=== PATIENT | male | born 1935 | race Caucasian/White ===

== ENCOUNTER → 2020-01-04 08:50 | Outpatient (CLI) | payer MEDICARE, OTHER, SELFPAY ==
[2020-01-04 10:29] LABS: Add Manual Diff / Slide Review NO; Basophils Absolute Auto 100 /uL (0-100); Basophils Percent Auto 0.8 % (0-2); Eosinophils Absolute Auto 200 /uL (0-450); Eosinophils Percent Auto 2.8 % (2-4); Hemoglobin 15.3 g/dL (13.5-17.5); Lymphocytes Absolute Auto 1500 /uL (1100-4500); Lymphocytes Percent Auto 22.4 % (25-40); Mean Corpuscular HGB Conc 32.6 % (30-36); Mean Corpuscular Hemoglobin 29.7 PG (26-34); Mean Corpuscular Volume 91.2 fL (80-100); Monocytes Absolute Auto 700 /uL (0-900); Monocytes Percent Auto 10.8 % (3-14); Neutrophils Absolute Auto 4300 /uL (1500-7000); Neutrophils Percent Auto 63.2 % (50-75); Platelet Count 120 X10^3/uL (150-400); Red Blood Cell Count 5.15 X10^6/uL (4.5-5.9); Red Cell Distribution Width 13.8 % (11.6-14.8); White Blood Cell Count 6.7 X10^3/uL (4.5-11.0)
[2020-01-04 10:38] LABS: Hemoglobin A1C% w Est Avg Glu 5.8 % (4.0-6.0)
[2020-01-04 10:48] LABS: Alanine Aminotransferase 20 IU/L (<50); Albumin 4.1 g/dL (3.5-5.0); Albumin Globulin Ratio 1.3 (1.0-2.8); Alkaline Phosphatase 93 U/L (38-126); Aspartate Aminotransferase 31 IU/L (17-59); BUN Creatinine Ratio 20.3 (6-22); Bilirubin Total 0.8 mg/dL (0.2-1.3); Blood Urea Nitrogen 15 mg/dL (9-20); Calcium 9.3 mg/dL (8.4-10.2); Carbon Dioxide 30 mmol/L (22-32); Chloride 105 mmol/L (98-107); Cholesterol 165 mg/dL (140-199); Estimated Glomerular Filt Rate > 60.0 mL/min (>60); Globulin 3.2 g/dL (1.7-4.1); Glucose 97 mg/dL (80-110); HDL Cholesterol 38 mg/dL (40-60); HEMOLYSIS < 15 (0-50); LDL Cholesterol Calculated 112 mg/dL (<100); Potassium 4.6 mmol/L (3.4-5.1); Sodium 139 mmol/L (137-145); Total Protein 7.3 g/dL (6.3-8.2); Triglycerides 76 mg/dL (35-150); Uric Acid 4.9 mg/dL (3.5-8.5)
[2020-01-04 11:46] LABS: TSH w/ Reflex to FT4 4.36 uIU/mL (0.47-4.68)
== END ==
PROVIDERS: PCP Internal Medicine; Referring Provider Internal Medicine; Visit Provider Internal Medicine
DX: E78.5 Hyperlipidemia, unspecified (principal); I10 Essential (primary) hypertension; M1A.9XX0 Chronic gout, unspecified, without tophus (tophi); G47.33 Obstructive sleep apnea (adult) (pediatric); F32.9 Major depressive disorder, single episode, unspecified; R73.09 Other abnormal glucose
CPT/HCPCS: 36415; 80053; 80061; 83036; 84443; 84550; 85025

== ENCOUNTER → 2020-01-10 15:04 | Outpatient (ROUT) | payer MEDICARE, OTHER, SELFPAY | PROVIDERS: PCP Internal Medicine; Visit Provider Internal Medicine | DX: R30.0 Dysuria (principal) | CPT/HCPCS: 87086 ==

== ENCOUNTER → 2020-02-07 10:03 | Outpatient (CLI) | payer MEDICARE, OTHER, SELFPAY ==
[2020-02-07 11:12] LABS: Alanine Aminotransferase 23 IU/L (<50); Albumin 4.1 g/dL (3.5-5.0); Albumin Globulin Ratio 1.3 (1.0-2.8); Alkaline Phosphatase 95 U/L (38-126); Aspartate Aminotransferase 42 IU/L (17-59); BUN Creatinine Ratio 28.8 (6-22); Bilirubin Total 0.9 mg/dL (0.2-1.3); Blood Urea Nitrogen 23 mg/dL (9-20); Calcium 9.3 mg/dL (8.4-10.2); Carbon Dioxide 28 mmol/L (22-32); Chloride 104 mmol/L (98-107); Cholesterol 135 mg/dL (140-199); Estimated Glomerular Filt Rate > 60.0 mL/min (>60); Globulin 3.1 g/dL (1.7-4.1); Glucose 117 mg/dL (80-110); HDL Cholesterol 35 mg/dL (40-60); HEMOLYSIS 23 (0-50); LDL Cholesterol Calculated 66 mg/dL (<100); Sodium 138 mmol/L (137-145); Total Protein 7.2 g/dL (6.3-8.2); Triglycerides 170 mg/dL (35-150); Uric Acid 4.3 mg/dL (3.5-8.5)
== END ==
PROVIDERS: PCP Internal Medicine; Referring Provider Internal Medicine; Visit Provider Internal Medicine
DX: I25.10 Atherosclerotic heart disease of native coronary artery without angina pectoris (principal); M1A.9XX0 Chronic gout, unspecified, without tophus (tophi)
CPT/HCPCS: 36415; 80053; 80061; 84550

== ENCOUNTER 2020-07-04 17:01 | Emergency (ER) | payer MEDICARE, OTHER, SELFPAY ==
[2020-07-04] VITALS (39 sets, daily range): BP systolic 84–107; BP diastolic 50–61; PULSE 37–74; RESP 14–27; TEMP 37; O2SAT 92–98; BMI 28.7
--- NOTE | 2020-07-04 17:17 | DI.RAD.S_ITS ---
PROCEDURE: XR CHEST 1V INDICATIONS: Bradycardia TECHNIQUE: One view of the chest was acquired. COMPARISON: [facility], CHEST 1 VIEW, 04/27/2013, 12:54. [facility], CHEST 1 VIEW, 09/07/2013, 23:06. FINDINGS: Surgical changes and devices: None. Defibrillator pads are seen. Lungs and pleura: Lungs are clear. No pleural effusions or pneumothorax. Mediastinum: Tortuous Bones and chest wall: No suspicious bony lesions. Age-appropriate bony degenerative changes are seen. Overlying soft tissues appear unremarkable. IMPRESSION: Portable chest, without an acute abnormality identified. Dictated by: Lester Noble M.D. on 07/04/2020 at 16:44 Approved by: Lester Noble M.D. on 07/04/2020 at 16:45
--- NOTE | 2020-07-04 17:22 | ED_ITS ---
HPI - General Adult General Chief complaint: Dizziness Stated complaint: short of breath, dizziness Time Seen by Provider: 07/04/20 17:16 Source: patient Mode of arrival: Ambulatory Limitations: no limitations History of Present Illness HPI narrative: Patient is an 85-year-old male who has a history of hypertension and gout and depression who is here for evaluation of several days of shortness of breath and dizziness and generalized fatigue. He denies any chest pain. He states he has been taking his medications as directed. He has not fallen. No new exposures. No new medicines. He has never had anything like this in the past. Related Data Home Medications Medication Instructions Recorded Confirmed POTASSIUM CHLORIDE (KLOR-CON M10) 10 meq PO BID #0 05/07/11 08/30/18 [OTC STOOL SOFTENER] 1 tab PRN #0 05/07/11 08/30/18 hydrochlorothiazide 25 mg PO QDAY #0 05/07/11 08/30/18 simvastatin 80 mg PO HS #0 05/07/11 08/30/18 allopurinol 300 mg tablet 300 mg PO DAILY 08/30/18 08/30/18 aspirin 81 mg tablet,delayed 81 mg PO DAILY 08/30/18 08/30/18 release diltiazem HCl 120 mg 120 mg PO DAILY 08/30/18 08/30/18 capsule,extended release 24 hr sertraline 50 mg tablet 50 mg PO DAILY 08/30/18 08/30/18 Allergies Allergy/AdvReac Type Severity Reaction Status Date / Time No Known Drug Allergies Allergy Verified 07/04/20 17:28 Review of Systems Constitutional Constitutional: Reports fatigue, Denies fever(s), Denies headache(s), Reports lethargy and Reports weakness Eyes Eyes: Denies change in vision ENT Ears, Nose, Mouth, and Throat: Denies vertigo, Denies dizziness, Denies headache(s), Denies disequilibrium and Denies sore throat Cardiovascular Cardiovascular: Denies chest pain, Reports lightheadedness and Reports dyspnea on exertion Respiratory Respiratory: Denies cough and Reports dyspnea on exertion Gastrointestinal Gastrointestinal: Denies abdominal pain, Denies nausea and Denies vomiting Genitourinary Genitourinary: Denies dysuria Genitourinary: Denies dysuria Musculoskeletal Musculoskeletal: Denies arthralgias and Denies myalgias Integumentary/Breasts Skin/Breast: Denies rash Neurologic Neurologic: Denies behavioral changes, Denies confusion, Denies vertigo, Denies dizziness, Denies headache(s), Denies disequilibrium and Reports weakness Psychiatric Psychiatric: Denies behavioral changes and Denies confusion Endocrine Endocrine: Reports fatigue Hematologic/Lymphatic On Anticoagulants: No Allergic/Immunologic Allergic/Immunologic: Denies urticaria Patient History Medical History Depression Gout Head contusion Hypertension Social History Smoking Status: Never smoker Smoking Status: Never smoker Exam Initial Vital Signs Initial Vital Signs: Vital Signs Temperature 98.6 F 07/04/20 17:01 Pulse Rate 44 L 07/04/20 17:01 Respiratory Rate 16 07/04/20 17:01 Blood Pressure 103/56 L 07/04/20 17:01 Pulse Oximetry 95 07/04/20 17:01 Const General: cooperative, comfortable and well developed Limitations: mental status not altered HENMT Head: normal to inspection and normocephalic Eyes General: appearance normal, both eyes and all related structures Chest Chest: No tenderness Resp Effort & Inspection: normal respiratory effort Auscultation: clear to auscultation bilaterally Cardio Rate: bradycardic Rhythm: regular rhythm Pulses: radial pulses present GI Inspection: non-distended Palpation: soft, No firm and No tender General: bladder normal to palpation Back/Spine/Pelvis Back: No CVA tenderness Skin Lesions: no lesions Rashes: no rashes Neuro General: patient alert, patient awake and patient oriented x3 Cognition: normal cognition Speech: speech normal Motor: muscle tone normal throughout Sensory Exam: no sensory deficits noted Extrem General: normal to inspection, capillary refill normal and No edema Psych Appearance: grossly normal and well kempt Scores GCS Jhon coma scale eye opening: Spontaneous Nunez coma scale verbal response: Orientated Nunez coma scale motor response: Obey commands Nunez coma scale total score: 15 Course Orders Ordered: ED Orders 07/04/20 17:15 Complete Blood Count AUTO DIFF Stat Comprehensive Metabolic Panel Stat Lipase Stat NT-proBNP (BNP-Adult 18+) Stat Partial Thromboplastin Time Stat Prothrombin Time INR Stat Troponin & CK Cardiac Panel Stat 07/04/20 17:17 XR chest 1V Stat 07/04/20 18:31 COVID19 - ADMIT (PATENT SEARCHER swab/PCR) Stat Sodium Chloride (Normal Saline 0.9%) 1,000 mls @ 150 mls/hr IV CONT XAVI Last Infusion: 07/04/20 18:09 Dose: 999 mls/hr Documented by: Admin: 07/04/20 17:48 Dose: 150 mls/hr Documented by: JANNET Discontinued Medications Atropine Sulfate (Atropine 1 Mg/10 Ml Syringe) 0.5 mg IV NOW ONE Stop: 07/04/20 17:34 Last Admin: 07/04/20 17:47 Dose: 0.5 mg Documented by: JANNET Vital Signs Vital signs: Vital Signs - 8 hr 07/04/20 17:01 07/04/20 17:09 07/04/20 17:30 Temperature 98.6 F Pulse Rate 44 L 42 L 42 L Respiratory Rate 16 20 19 Blood Pressure 103/56 L 103/56 L Pulse Oximetry 95 96 95 07/04/20 17:42 07/04/20 17:45 07/04/20 18:00 Temperature Pulse Rate 48 L 48 L 44 L Respiratory Rate 15 14 16 Blood Pressure 99/57 L 100/55 L 87/52 L Pulse Oximetry 93 94 95 07/04/20 18:03 07/04/20 18:15 07/04/20 18:21 Temperature Pulse Rate 44 L 46 L 47 L Respiratory Rate 15 14 18 Blood Pressure 92/53 L 96/58 L 93/50 L Pulse Oximetry 96 96 98 07/04/20 18:25 07/04/20 18:30 07/04/20 18:35 Temperature Pulse Rate 45 L 40 L 40 L Respiratory Rate 14 17 17 Blood Pressure 98/55 L 103/55 L 103/52 L Pulse Oximetry 95 94 94 07/04/20 18:40 07/04/20 18:45 07/04/20 18:50 Temperature Pulse Rate 39 L 41 L 39 L Respiratory Rate 17 17 17 Blood Pressure 103/52 L 92/51 L 91/50 L Pulse Oximetry 95 94 92 Medical Decision Making Lab Data Lab results reviewed: Yes I reviewed the patient's lab results. Result diagrams: 07/04/20 17:15 07/04/20 17:15 Labs: Lab Results 07/04/20 07/04/20 07/04/20 Range/Units 17:15 17:15 17:15 WBC 9.1 (4.5-11.0) X10^3/uL RBC 5.09 (4.5-5.9) X10^6/uL Hgb 15.4 (13.5-17.5) g/dL Hct 46.1 (41-53) % MCV 90.5 (80-100) fL MCH 30.3 (26-34) PG MCHC 33.4 (30-36) % RDW 13.6 (11.6-14.8) % Plt Count 149 L (150-400) X10^3/uL Neut % (Auto) 63.8 (50-75) % Lymph % (Auto) 26.3 (25-40) % Power % (Auto) 7.4 (3-14) % Eos % (Auto) 1.4 L (2-4) % Baso % (Auto) 1.1 (0-2) % Neut # (Auto) 5800 (4703-6751) /uL Lymph # (Auto) 2400 (5688-4423) /uL Power # (Auto) 700 (0-900) /uL Eos # (Auto) 100 (0-450) /uL Baso # (Auto) 100 (0-100) /uL PT 12.8 H (10.1-12.7) SECONDS INR 1.1 (0.9-1.3) APTT 33 (26.4-36.2) SECONDS Sodium 140 (137-145) mmol/L Potassium 4.4 (3.4-5.1) mmol/L Chloride 104 (98-107) mmol/L Carbon Dioxide 25 (22-32) mmol/L BUN 21 H (9-20) mg/dL Creatinine 1.06 (0.66-1.25) mg/dL Estimated GFR > 60.0 (>60) mL/min BUN/Creatinine Ratio 19.8 (6-22) Glucose 142 H (80-110) mg/dL Calcium 9.4 (8.4-10.2) mg/dL Total Bilirubin 0.7 (0.2-1.3) mg/dL AST 35 (17-59) IU/L ALT 22 (<50) IU/L Alkaline Phosphatase 100 (38-126) U/L Total Creatine Kinase 62 (55-170) U/L CK-MB (CK-2) TNP CK-MB (CK-2) Rel Index TNP Troponin I < 0.012 (0.01-0.034) ng/mL NT-Pro-B Natriuret Pep 471 H (<450) pg/mL Total Protein 7.0 (6.3-8.2) g/dL Albumin 4.0 (3.5-5.0) g/dL Globulin 3.0 (1.7-4.1) g/dL Albumin/Globulin Ratio 1.3 (1.0-2.8) Lipase 126 (23-300) U/L SARS-CoV-2 (PCR) (Negative) 07/04/20 Range/Units 18:31 WBC (4.5-11.0) X10^3/uL RBC (4.5-5.9) X10^6/uL Hgb (13.5-17.5) g/dL Hct (41-53) % MCV (80-100) fL MCH (26-34) PG MCHC (30-36) % RDW (11.6-14.8) % Plt Count (150-400) X10^3/uL Neut % (Auto) (50-75) % Lymph % (Auto) (25-40) % Power % (Auto) (3-14) % Eos % (Auto) (2-4) % Baso % (Auto) (0-2) % Neut # (Auto) (8116-4413) /uL Lymph # (Auto) (1355-3649) /uL Power # (Auto) (0-900) /uL Eos # (Auto) (0-450) /uL Baso # (Auto) (0-100) /uL PT (10.1-12.7) SECONDS INR (0.9-1.3) APTT (26.4-36.2) SECONDS Sodium (137-145) mmol/L Potassium (3.4-5.1) mmol/L Chloride (98-107) mmol/L Carbon Dioxide (22-32) mmol/L BUN (9-20) mg/dL Creatinine (0.66-1.25) mg/dL Estimated GFR (>60) mL/min BUN/Creatinine Ratio (6-22) Glucose (80-110) mg/dL Calcium (8.4-10.2) mg/dL Total Bilirubin (0.2-1.3) mg/dL AST (17-59) IU/L ALT (<50) IU/L Alkaline Phosphatase (38-126) U/L Total Creatine Kinase (55-170) U/L CK-MB (CK-2) CK-MB (CK-2) Rel Index Troponin I (0.01-0.034) ng/mL NT-Pro-B Natriuret Pep (<450) pg/mL Total Protein (6.3-8.2) g/dL Albumin (3.5-5.0) g/dL Globulin (1.7-4.1) g/dL Albumin/Globulin Ratio (1.0-2.8) Lipase (23-300) U/L SARS-CoV-2 (PCR) Negative (Negative) Imaging Data Chest x-ray: Radiologist's Impression: [address] [id number] ReportSigned Patient: Teddy Don [facility]#: [id number]: 5Acct:[id number]/Sex: 85 / MDate of Service: 07/04/20Loc: EDAccession Number: [id number] Procedure: XR chest 1V Ordering Provider: Darnell Jones D.O. PROCEDURE: XR CHEST 1V INDICATIONS: Bradycardia TECHNIQUE: One view of the chest was acquired. COMPARISON: [facility], CHEST 1 VIEW, 04/27/2013, 12:54. [facility], CHEST 1 VIEW, 09/07/2013, 23:06. FINDINGS: Surgical changes and devices: None. Defibrillator pads are seen. Lungs and pleura: Lungs are clear. No pleural effusions or pneumothorax. Mediastinum: Tortuous Bones and chest wall: No suspicious bony lesions. Age-appropriate bony degenerative changes are seen. Overlying soft tissues appear unremarkable. IMPRESSION: Portable chest, without an acute abnormality identified. Dictated by: Lester Noble M.D. on 07/04/2020 at 16:44 Approved by: Lester Noble M.D. on 07/04/2020 at 16:45 ECG Data Attestation: I personally reviewed and interpreted this ECG as follows: Prior ECG tracings: not available for review Interpretation: Sinus bradycardia Ventricular rate of 43 Right bundle branch block Left anterior fascicular block LVH PA interval 184 milliseconds QRS 1-6 milliseconds QTC 408 milliseconds MDM Narrative Medical decision making narrative: Patient's chest x-ray and labs are unremarkable. He is bradycardic. It is a sinus bradycardia. Blood pressure has been systolic in the 90s to low 100s. Mean arterial pressures have been 55- 65. He is mentating without issue. Has no chest pain. Has no shortness of breath. No abdominal pain. Patient is stable. He is on diltiazem for what he states is high blood pressure. At 1 point his heart rate did drop to the mid 30s. He was given 0.5 mg of atropine and this increased his heart rate to the high 40s. His blood pressure also improved with this. External pacer pads were placed but has not required any pacing. Discussed the case with Dr. Zarco with cardiology who recommended admitting him to the hospital for monitoring and also stopping his diltiazem. I discussed the case with Dr Cruz with medicine at [facility] who accepts the patient in transfer. I did discuss the need for transport with the patient. He is currently stable for transfer. He expressed understanding agreement. Critical Care Time Critical Care Time Critical Care Time: Yes Total Critical Care Time: 35 Attestation: The high probability of a clinically significant, sudden or life threatening deterioration of the cardiovascular system(s) required my full and direct attention, intervention and personal management. The aggregate critical care time was 35 minutes. This time is in addition to time spent performing reported procedures but includes the following: [X] Data Review and interpretation [X] Patient assessment and monitoring of vital signs [X] Documentation [x] Medication orders and management Discharge Plan Departure Patient Disposition: [facility] Clinical Impression: Symptomatic bradycardia Prescriptions: No Action allopurinol 300 mg tablet 300 mg PO DAILY RF: 0 aspirin 81 mg tablet,delayed release (DR/EC) 81 mg PO DAILY RF: 0 diltiazem HCl 120 mg capsule,extended release 24hr 120 mg PO DAILY RF: 0 sertraline 50 mg tablet 50 mg PO DAILY RF: 0 [OTC STOOL SOFTENER] 1 tab PRN Qty: 0 RF: 0 simvastatin 40 MG tablet 80 mg PO HS Qty: 0 RF: 0 POTASSIUM CHLORIDE (KLOR-CON M10) 10 meq PO BID Qty: 0 RF: 0 hydrochlorothiazide 25 MG tablet 25 mg PO QDAY Qty: 0 RF: 0 Referrals: Corinne Garcia MD [Primary Care Provider] -
[2020-07-04 17:34] LABS: Add Manual Diff / Slide Review NO; Basophils Absolute Auto 100 /uL (0-100); Basophils Percent Auto 1.1 % (0-2); Eosinophils Absolute Auto 100 /uL (0-450); Eosinophils Percent Auto 1.4 % (2-4); Hematocrit 46.1 % (41-53); Hemoglobin 15.4 g/dL (13.5-17.5); INR 1.1 (0.9-1.3); Lymphocytes Absolute Auto 2400 /uL (1100-4500); Lymphocytes Percent Auto 26.3 % (25-40); Mean Corpuscular HGB Conc 33.4 % (30-36); Mean Corpuscular Hemoglobin 30.3 PG (26-34); Mean Corpuscular Volume 90.5 fL (80-100); Monocytes Absolute Auto 700 /uL (0-900); Monocytes Percent Auto 7.4 % (3-14); Neutrophils Absolute Auto 5800 /uL (1500-7000); Neutrophils Percent Auto 63.8 % (50-75); Platelet Count 149 X10^3/uL (150-400); Prothrombin Time 12.8 SECONDS (10.1-12.7); Red Blood Cell Count 5.09 X10^6/uL (4.5-5.9); Red Cell Distribution Width 13.6 % (11.6-14.8); White Blood Cell Count 9.1 X10^3/uL (4.5-11.0)
[2020-07-04 17:36] LABS: PTT Partial Thromboplastin Tim 33 SECONDS (26.4-36.2)
[2020-07-04 17:39] LABS: Alanine Aminotransferase 22 IU/L (<50); Albumin Globulin Ratio 1.3 (1.0-2.8); Alkaline Phosphatase 100 U/L (38-126); Aspartate Aminotransferase 35 IU/L (17-59); BUN Creatinine Ratio 19.8 (6-22); Bilirubin Total 0.7 mg/dL (0.2-1.3); Blood Urea Nitrogen 21 mg/dL (9-20); Calcium 9.4 mg/dL (8.4-10.2); Carbon Dioxide 25 mmol/L (22-32); Chloride 104 mmol/L (98-107); Creatine Kinase 62 U/L (55-170); Estimated Glomerular Filt Rate > 60.0 mL/min (>60); Glucose 142 mg/dL (80-110); HEMOLYSIS 19 (0-50); Lipase 126 U/L (23-300); Potassium 4.4 mmol/L (3.4-5.1); Sodium 140 mmol/L (137-145)
[2020-07-04] MEDS: ATROPINE 1 MG/10 ML SYRINGE 0.5 MG IV (17:47)
[2020-07-04] MEDS: SODIUM CHLORIDE 0.9% 1,000 ML 150 ML IV (17:48)
[2020-07-04 17:50] LABS: NT-proBNP (BNP-Adult 18+) 471 pg/mL (<450); Troponin I < 0.012 ng/mL (0.01-0.034)
--- NOTE | 2020-07-04 18:07 | PC.NURSE ---
Pt BP dropping, VORB Dr. Jones 500mL NS bolus started
[2020-07-04 19:15] LABS: COVID19 - ADMIT (NP swab/PCR) Negative (Negative)
== END 2020-07-04 21:04 | disposition short-term general hospital (02) ==
LOC: ED 17:37
PROVIDERS: Emergency Provider Emergency Medicine; PCP Internal Medicine
DX: R00.1 Bradycardia, unspecified (principal); R42 Dizziness and giddiness; R06.02 Shortness of breath
CPT/HCPCS: 36415; 71045; 80053; 82550; 83690; 83880; 84484; 85025; 85610; 85730; 87635; 93005; 96361; 96374; 99284; 99291; C9803; J0461

== ENCOUNTER → 2020-07-24 14:42 | Outpatient (ROUT) | payer MEDICARE, OTHER, SELFPAY ==
[2020-07-24 14:52] LABS: Add Manual Diff / Slide Review NO; Basophils Absolute Auto 100 /uL (0-100); Basophils Percent Auto 1.2 % (0-2); Eosinophils Absolute Auto 100 /uL (0-450); Hematocrit 47.7 % (41-53); Hemoglobin 15.6 g/dL (13.5-17.5); Lymphocytes Absolute Auto 1800 /uL (1100-4500); Mean Corpuscular HGB Conc 32.6 % (30-36); Mean Corpuscular Hemoglobin 29.8 PG (26-34); Mean Corpuscular Volume 91.4 fL (80-100); Monocytes Absolute Auto 700 /uL (0-900); Monocytes Percent Auto 9.9 % (3-14); Neutrophils Absolute Auto 4500 /uL (1500-7000); Neutrophils Percent Auto 61.9 % (50-75); Platelet Count 139 X10^3/uL (150-400); Red Blood Cell Count 5.22 X10^6/uL (4.5-5.9); Red Cell Distribution Width 13.9 % (11.6-14.8); White Blood Cell Count 7.3 X10^3/uL (4.5-11.0)
[2020-07-24 15:38] LABS: Alanine Aminotransferase 24 IU/L (<50); Albumin 4.3 g/dL (3.5-5.0); Albumin Globulin Ratio 1.5 (1.0-2.8); Alkaline Phosphatase 100 U/L (38-126); Aspartate Aminotransferase 34 IU/L (17-59); BUN Creatinine Ratio 17.1 (6-22); Bilirubin Total 0.9 mg/dL (0.2-1.3); Blood Urea Nitrogen 14 mg/dL (9-20); Calcium 9.9 mg/dL (8.4-10.2); Carbon Dioxide 27 mmol/L (22-32); Chloride 105 mmol/L (98-107); Cholesterol 131 mg/dL (140-199); Estimated Glomerular Filt Rate > 60.0 mL/min (>60); Globulin 2.9 g/dL (1.7-4.1); Glucose 89 mg/dL (80-110); HDL Cholesterol 41 mg/dL (40-60); HEMOLYSIS < 15 (0-50); LDL Cholesterol Calculated 75 mg/dL (<100); Potassium 4.5 mmol/L (3.4-5.1); Sodium 138 mmol/L (137-145); Total Protein 7.2 g/dL (6.3-8.2); Triglycerides 74 mg/dL (35-150); Uric Acid 4.3 mg/dL (3.5-8.5)
== END ==
PROVIDERS: PCP Internal Medicine; Visit Provider Physician Assistant
DX: E78.49 Other hyperlipidemia (principal); M1A.9XX0 Chronic gout, unspecified, without tophus (tophi); I10 Essential (primary) hypertension; I25.10 Atherosclerotic heart disease of native coronary artery without angina pectoris
CPT/HCPCS: 80053; 80061; 84550; 85025

== ENCOUNTER 2020-08-29 23:19 | Emergency (ER) | payer MEDICARE, OTHER, SELFPAY ==
[2020-08-29 23:34] VITALS: BP 144/105; PULSE 64; RESP 24; TEMP 37.2; O2SAT 96
--- NOTE | 2020-08-29 23:34 | DI.RAD.S_ITS ---
PROCEDURE: XR CHEST 1V INDICATIONS: chest pain TECHNIQUE: One view of the chest was acquired. COMPARISON: [facility], CR, XR CHEST 1V, 07/04/2020, 17:28. FINDINGS: Surgical changes and devices: None. Lungs and pleura: Lungs are clear. No pleural effusions or pneumothorax. Mediastinum: Mediastinal contours appear normal. Heart size is mildly prominent. Bones and chest wall: No suspicious bony lesions. Overlying soft tissues appear unremarkable. IMPRESSION: No acute pulmonary process. The above findings are concordant with preliminary report. Dictated by: Balbina Ye M.D. on 08/30/2020 at 8:32 Approved by: Balbina Ye M.D. on 08/30/2020 at 8:32
[2020-08-29 23:44] LABS: Add Manual Diff / Slide Review NO; Basophils Absolute Auto 100 /uL (0-100); Basophils Percent Auto 1.2 % (0-2); Eosinophils Absolute Auto 200 /uL (0-450); Eosinophils Percent Auto 2.5 % (2-4); Hematocrit 49.8 % (41-53); Hemoglobin 16.3 g/dL (13.5-17.5); Lymphocytes Absolute Auto 2200 /uL (1100-4500); Lymphocytes Percent Auto 23.7 % (25-40); Mean Corpuscular HGB Conc 32.7 % (30-36); Mean Corpuscular Hemoglobin 29.8 PG (26-34); Mean Corpuscular Volume 91.1 fL (80-100); Monocytes Absolute Auto 1100 /uL (0-900); Neutrophils Absolute Auto 5700 /uL (1500-7000); Neutrophils Percent Auto 60.6 % (50-75); Platelet Count 139 X10^3/uL (150-400); Red Blood Cell Count 5.47 X10^6/uL (4.5-5.9); Red Cell Distribution Width 14.2 % (11.6-14.8); White Blood Cell Count 9.4 X10^3/uL (4.5-11.0)
[2020-08-29 23:50] LABS: Alanine Aminotransferase 20 IU/L (<50); Albumin 4.5 g/dL (3.5-5.0); Albumin Globulin Ratio 1.3 (1.0-2.8); Alkaline Phosphatase 99 U/L (38-126); Aspartate Aminotransferase 36 IU/L (17-59); BUN Creatinine Ratio 24.4 (6-22); Bilirubin Total 1.2 mg/dL (0.2-1.3); Blood Urea Nitrogen 20 mg/dL (9-20); Calcium 9.9 mg/dL (8.4-10.2); Carbon Dioxide 28 mmol/L (22-32); Chloride 103 mmol/L (98-107); Creatine Kinase 76 U/L (55-170); Estimated Glomerular Filt Rate > 60.0 mL/min (>60); Globulin 3.6 g/dL (1.7-4.1); Glucose 97 mg/dL (80-110); Lipase 110 U/L (23-300); Sodium 140 mmol/L (137-145); Total Protein 8.1 g/dL (6.3-8.2)
[2020-08-29 23:53] LABS: HEMOLYSIS 82 (0-50)
[2020-08-29 23:54] LABS: Potassium 3.9 mmol/L (3.4-5.1)
[2020-08-30 00:02] LABS: Troponin I < 0.012 ng/mL (0.01-0.034)
[2020-08-30 00:12] LABS: NT-proBNP (BNP-Adult 18+) 208 pg/mL (<450)
[2020-08-30 00:40] VITALS: PULSE 61; RESP 24; O2SAT 93
[2020-08-30 00:42] VITALS: BP 142/62; PULSE 63; RESP 19; O2SAT 94
--- NOTE | 2020-08-30 00:54 | ED_ITS ---
HPI - Chest Pain General Chief Complaint: Chest Pain Stated Complaint: Chest pains Time Seen by Provider: 08/29/20 23:33 Source: patient Mode of arrival: Ambulatory History of Present Illness HPI narrative: 85-year-old gentleman with a history of hypertension, hyperlipidemia and depression presents with pain along the right ribs right uppe r quadrant that he describes as a stabbing sharp pain worse with a deep breath it has been present for 2 days. He describes no fevers, cough, chills, palpitations, left-sided chest pain. He has had no change to bowel or bladder habits. No dysuria, no flank pain. He still has his gallbladder in place and has never had similar episodes of pain. Related Data Home Medications Medication Instructions Recorded Confirmed POTASSIUM CHLORIDE (KLOR-CON M10) 10 meq PO BID #0 05/07/11 08/30/18 [OTC STOOL SOFTENER] 1 tab PRN #0 05/07/11 08/30/18 hydrochlorothiazide 25 mg PO QDAY #0 05/07/11 08/30/18 simvastatin 80 mg PO HS #0 05/07/11 08/30/18 allopurinol 300 mg tablet 300 mg PO DAILY 08/30/18 08/30/18 aspirin 81 mg tablet,delayed 81 mg PO DAILY 08/30/18 08/30/18 release diltiazem HCl 120 mg 120 mg PO DAILY 08/30/18 08/30/18 capsule,extended release 24 hr sertraline 50 mg tablet 50 mg PO DAILY 08/30/18 08/30/18 Allergies Allergy/AdvReac Type Severity Reaction Status Date / Time No Known Drug Allergies Allergy Verified 08/02/20 10:32 Review of Systems Review of Systems Narrative: Remainder of complete review of systems is otherwise unremarkable except for that included in the HPI. Patient History Medical History Depression Deviated septum Gout Head contusion Hypertension Stroke Social History Smoking Status: Never smoker Smoking Status: Never smoker alcohol intake frequency: holidays/special occasions only Substance Use Type: does not use Exam Narrative Exam Narrative: General: Healthy appearing, in no acute distress. Able to give a complete and coherent history. Well-nourished well-developed HEENT: Moist mucous membranes, normal sclera with reactive pupils, Neck: No JVD, supple Respiratory: Lungs are clear to auscultation, no wheezing no rales no rhonchi. Full and symmetrical air movement Cardiac: Regular rate and rhythm no murmurs no bruits Abdomen: Soft, nontender, good bowel tones, no flank pain. No hepatosplenomegaly and no specific tenderness over his gallbladder Chest: Some mild tenderness along the right anterior lower ribs. This is not reproducible on my exam. Skin: Warm and dry, no rashes or fascicular lesions appreciated Neurologic: Grossly neurologically intact with no obvious asymmetries or abnormalities Extremities: No trauma, well perfused Psych: Cooperative, appropriate insight and affect Initial Vital Signs Initial Vital Signs: Vital Signs Temperature 99.0 F 08/29/20 23:34 Pulse Rate 64 08/29/20 23:34 Respiratory Rate 24 08/29/20 23:34 Blood Pressure 144/105 H 08/29/20 23:34 Pulse Oximetry 96 08/29/20 23:34 Course Orders Ordered: ED Orders 08/29/20 23:30 BNP [NT-proBNP (BNP-Adult 18+)] Stat Complete Blood Count AUTO DIFF Stat Comprehensive Metabolic Panel Stat Lipase Stat Troponin & CK Cardiac Panel Stat 08/29/20 23:34 XR chest 1V Stat Discontinued Medications Ketorolac Tromethamine (Ketorolac 30 Mg/Ml Vial) 15 mg IV NOW ONE Stop: 08/30/20 01:05 Last Admin: 08/30/20 01:14 Dose: 15 mg Documented by: KANE Vital Signs Vital signs: Vital Signs - 8 hr 08/29/20 23:34 08/30/20 00:40 08/30/20 00:42 Temperature 99.0 F Pulse Rate 64 61 63 Respiratory Rate 24 24 19 Blood Pressure 144/105 H 142/62 H Pulse Oximetry 96 93 94 08/30/20 01:00 08/30/20 01:30 Temperature Pulse Rate 63 59 L Respiratory Rate 19 10 L Blood Pressure 146/67 H 135/63 Pulse Oximetry 95 93 MDM - Chest Pain Medical Records Data Attestation: I reviewed the patient's medical records. Lab Data Attestation: I reviewed the patient's lab results. Result diagrams: 08/29/20 23:30 08/29/20 23:30 Labs: Lab Results 08/29/20 08/29/20 08/29/20 Range/Units 23:30 23:30 23:30 WBC 9.4 (4.5-11.0) X10^3/uL RBC 5.47 (4.5-5.9) X10^6/uL Hgb 16.3 (13.5-17.5) g/dL Hct 49.8 (41-53) % MCV 91.1 (80-100) fL MCH 29.8 (26-34) PG MCHC 32.7 (30-36) % RDW 14.2 (11.6-14.8) % Plt Count 139 L (150-400) X10^3/uL Neut % (Auto) 60.6 (50-75) % Lymph % (Auto) 23.7 L (25-40) % [place] % (Auto) 12.0 (3-14) % Eos % (Auto) 2.5 (2-4) % Baso % (Auto) 1.2 (0-2) % Neut # (Auto) 5700 (4543-8857) /uL Lymph # (Auto) 2200 (8161-5031) /uL [place] # (Auto) 1100 H (0-900) /uL Eos # (Auto) 200 (0-450) /uL Baso # (Auto) 100 (0-100) /uL Sodium 140 (137-145) mmol/L Potassium 3.9 (3.4-5.1) mmol/L Chloride 103 (98-107) mmol/L Carbon Dioxide 28 (22-32) mmol/L BUN 20 (9-20) mg/dL Creatinine 0.82 (0.66-1.25) mg/dL Estimated GFR > 60.0 (>60) mL/min BUN/Creatinine Ratio 24.4 H (6-22) Glucose 97 (80-110) mg/dL Calcium 9.9 (8.4-10.2) mg/dL Total Bilirubin 1.2 (0.2-1.3) mg/dL AST 36 (17-59) IU/L ALT 20 (<50) IU/L Alkaline Phosphatase 99 (38-126) U/L Total Creatine Kinase 76 (55-170) U/L CK-MB (CK-2) TNP CK-MB (CK-2) Rel Index TNP Troponin I < 0.012 (0.01-0.034) ng/mL NT-Pro-B Natriuret Pep 208 (<450) pg/mL Total Protein 8.1 (6.3-8.2) g/dL Albumin 4.5 (3.5-5.0) g/dL Globulin 3.6 (1.7-4.1) g/dL Albumin/Globulin Ratio 1.3 (1.0-2.8) Lipase 110 (23-300) U/L Imaging Data Chest x-ray: Radiologist's Impression: No acute findings Dr Madalyn Young MD ECG Data Attestation: I personally reviewed and interpreted this ECG as follows: Interpretation: Sinus rhythm at a rate of 71 Occasional PVC Bifascicular block Left axis deviation No acute ischemic changes MDM Narrative Medical decision making narrative: A 5-year-old gentleman with 2 days of right- sided musculoskeletal type pain worse with deep breathing intermittent in nature and not reproducible at time of exam. No evidence of abdominal pain, acute coronary syndrome, splenomegaly, acute cholecystitis. No lower lower lobe pneumonias, zoster or other immediate findings are appreciated. He was feeling significantly better after single dose of 15 mg of IM Toradol. Discussed pain control at home suspect costochondritis at this point and encouraged him to return if symptoms are not improving. Discharge Plan Departure Patient Disposition: Home Clinical Impression: Acute costochondritis Instructions: Costochondritis Activity Restrictions/Additional Instructions: Thank you for coming in today With this pain that you have on the right side, worse with a deep breath, I think you are developing some costochondritis. This can be treated with Tyl enol. It should resolve by itself within the next couple of days. In the emergency room today I did not find any evidence to suggest that you had pneumonia, broken ribs or rib abnormalities, liver or gallbladder problems, infection, heart attack or other findings that would require hospitalization I hope that you feel better and you heal quickly Prescriptions: No Action allopurinol 300 mg tablet 300 mg PO DAILY RF: 0 aspirin 81 mg tablet,delayed release (DR/EC) 81 mg PO DAILY RF: 0 diltiazem HCl 120 mg capsule,extended release 24hr 120 mg PO DAILY RF: 0 sertraline 50 mg tablet 50 mg PO DAILY RF: 0 [OTC STOOL SOFTENER] 1 tab PRN Qty: 0 RF: 0 simvastatin 40 MG tablet 80 mg PO HS Qty: 0 RF: 0 POTASSIUM CHLORIDE (KLOR-CON M10) 10 meq PO BID Qty: 0 RF: 0 hydrochlorothiazide 25 MG tablet 25 mg PO QDAY Qty: 0 RF: 0
[2020-08-30 01:00] VITALS: BP 146/67; PULSE 63; RESP 19; O2SAT 95
[2020-08-30] MEDS: KETOROLAC 30 MG/ML VIAL 15 MG IV (01:14)
[2020-08-30 01:30] VITALS: BP 135/63; PULSE 59; RESP 10; O2SAT 93
== END 2020-08-30 02:00 | disposition home or self-care (01) ==
PROVIDERS: Emergency Provider Emergency Medicine
DX: M94.0 Chondrocostal junction syndrome [Tietze] (principal); R07.9 Chest pain, unspecified
CPT/HCPCS: 71045; 80053; 82550; 83690; 83880; 84484; 85025; 93005; 93010; 96374; 99284; J1885

== ENCOUNTER → 2022-09-22 07:50 | Outpatient (CLI) | payer OTHER, SELFPAY ==
[2022-09-22 09:02] LABS: Add Manual Diff / Slide Review NO; Basophils Absolute Auto 100 /uL (0-100); Basophils Percent Auto 1.1 % (0-2); Eosinophils Absolute Auto 100 /uL (0-450); Eosinophils Percent Auto 1.2 % (2-4); Hematocrit 45.3 % (41-53); Hemoglobin 15.4 g/dL (13.5-17.5); Lymphocytes Absolute Auto 1600 /uL (1100-4500); Lymphocytes Percent Auto 20.9 % (25-40); Mean Corpuscular HGB Conc 33.9 % (30-36); Mean Corpuscular Hemoglobin 29.9 PG (26-34); Monocytes Absolute Auto 600 /uL (0-900); Neutrophils Absolute Auto 5200 /uL (1500-7000); Neutrophils Percent Auto 68.8 % (50-75); Platelet Count 139 X10^3/uL (150-400); Red Blood Cell Count 5.15 X10^6/uL (4.5-5.9); Red Cell Distribution Width 14.3 % (11.6-14.8); White Blood Cell Count 7.6 X10^3/uL (4.5-11.0)
[2022-09-22 09:18] LABS: Alanine Aminotransferase 30 IU/L (<50); Albumin Globulin Ratio 1.4 (1.0-2.8); Alkaline Phosphatase 104 U/L (38-126); Aspartate Aminotransferase 35 IU/L (17-59); BUN Creatinine Ratio 15.9 (6-22); Bilirubin Total 1.4 mg/dL (0.2-1.3); Blood Urea Nitrogen 13 mg/dL (9-20); Calcium 9.1 mg/dL (8.4-10.2); Carbon Dioxide 29 mmol/L (22-32); Chloride 103 mmol/L (98-107); Cholesterol 139 mg/dL (140-199); Estimated Glomerular Filt Rate > 60 mL/min (>60); Globulin 2.8 g/dL (1.7-4.1); Glucose 93 mg/dL (80-110); HDL Cholesterol 50 mg/dL (40-60); HEMOLYSIS < 15 (0-50); LDL Cholesterol Calculated 71 mg/dL (<100); Potassium 4.2 mmol/L (3.4-5.1); Sodium 138 mmol/L (137-145); Total Protein 6.8 g/dL (6.3-8.2); Triglycerides 90 mg/dL (35-150)
[2022-09-22 09:31] LABS: Vitamin D 25 Hydroxy (D3) 27.9 ng/mL (30.0-100.0)
[2022-09-22 09:46] LABS: TSH w/ Reflex to FT4 3.82 uIU/mL (0.47-4.68)
[2022-09-22 10:05] LABS: Vitamin B12 409 pg/mL (239-931)
[2022-09-23 02:07] LABS: x Labcorp Estim. Avg Glu (eAG) 114 mg/dL (.); x Labcorp Hemoglobin A1c 5.6 % (4.8-5.6)
== END ==
PROVIDERS: Referring Provider Physician Assistant; Visit Provider Physician Assistant
DX: R79.89 Other specified abnormal findings of blood chemistry (principal); Z13.6 Encounter for screening for cardiovascular disorders; E78.5 Hyperlipidemia, unspecified; D69.6 Thrombocytopenia, unspecified; R73.09 Other abnormal glucose
CPT/HCPCS: 36415; 80053; 80061; 82306; 82607; 83036; 84443; 85025

== ENCOUNTER 2024-02-14 07:26 | Emergency (ER) | payer MEDICARE, OTHER, SELFPAY ==
[2024-02-14] VITALS (13 sets, daily range): BP systolic 117–195; BP diastolic 59–114; PULSE 49–81; RESP 13–20; TEMP 37; O2SAT 92–100; BMI 22.3
--- NOTE | 2024-02-14 07:35 | EKG_ITS ---
[id number] [address] Test Date: 2024-02-14 Pat Name: Teddy Don Department: Room: Gender: Male Physiology Teacher: JEANETTE : 1935 Requested By: Order Number: [id number] Reading MD: Luis Jackson MD Measurements Intervals [place] Rate: 50 P: 41 WV: 214 QRS: -57 QRSD: 132 T: -30 QT: 488 QTc: 444 Interpretive Statements Sinus bradycardia with 1st degree AV block Right bundle branch block Left anterior fascicular block Bifascicular block Minimal voltage criteria for LVH, may be normal variant ( R in aVL ) NO SIGNIFICANT CHANGE FROM PRIOR TRACING Electronically Signed On 02-14-2024 17:06:59 PST by Luis Jackson MD
--- NOTE | 2024-02-14 07:36 | ED.CHESTPAIN ---
HPI - Chest Pain General Chief Complaint: Chest Pain Stated Complaint: Chest Pain Time Seen by Provider: 02/14/24 07:35 Source: patient, EMS, RN notes reviewed and old records reviewed Mode of arrival: EMS Limitations: no limitations History of Present Illness HPI narrative: 88-year-old male history of hypertension, dyslipidemia, gout, prior stroke, neurocognitive deficit who presents with complaint of chest discomfort that was left-sided earlier. EMS states that he presented standing at the front door unclothed. Was complaining of chest pain but states he thinks it is from anxiety she had fight with his granddaughter last night who helps caregiver for him. Patient does not express that he has frustration with his granddaughter. He states chest pain was left-sided did not radiate anywhere. Has resolved. Patient states does not typically get episodes of chest pain. Denies shortness of breath. Denies fevers. No cold cough or congestion symptoms. No nausea or vomiting. No lightheadedness or passing out. Denies any issues with bowel movements. Describes chronic urinary incontinence or dribbling, no sense of dysuria or urgency noted. Patient is unsure of his home medications. EMR shows aspirin, diltiazem, HCTZ, potassium simvastatin allopurinol and sertraline. Patient states he has had prior hip repair, knee surgery and on his left forearm. No known drug allergies reported. No tobacco, has not alcoholic drink nightly, no recreational drugs. Related Data Home Medications Medication Instructions Recorded Confirmed POTASSIUM CHLORIDE (KLOR-CON M10) 10 meq PO BID ##0 05/07/11 08/30/18 [OTC STOOL SOFTENER] 1 tab PRN ##0 05/07/11 08/30/18 hydrochlorothiazide 25 mg tablet 25 mg PO QDAY ##0 05/07/11 08/30/18 simvastatin 40 mg tablet 80 mg PO HS ##0 05/07/11 08/30/18 allopurinol 300 mg tablet 300 mg PO DAILY 08/30/18 08/30/18 aspirin 81 mg tablet,delayed 81 mg PO DAILY 08/30/18 08/30/18 release diltiazem HCl 120 mg 120 mg PO DAILY 08/30/18 08/30/18 capsule,extended release 24 hr sertraline 50 mg tablet 50 mg PO DAILY 08/30/18 08/30/18 Allergies Allergy/AdvReac Type Severity Reaction Status Date / Time No Known Drug Allergies Allergy Verified 08/02/20 10:32 Review of Systems Review of Systems ROS Unobtainable: All systems reviewed & are unremarkable except as noted in HPI and below Patient History Medical History Stroke Deviated septum Depression Gout Hypertension Head contusion Social History Smoking Status: Never smoker Smoking Status: Never smoker alcohol intake frequency: holidays/special occasions only Exam Narrative Exam Narrative: GENERAL: Alert and oriented x three, elderly male in mild distress. HEENT: Head normocephalic, atraumatic, EOMI, pupils reactive, face symmetric, moist mucous membranes NECK: Supple, full range of motion CARDIOVASCULAR: Regular rate and rhythm without murmurs, rubs or gallops. No JVD. No edema bilateral lower extremities. No warmth, erythema or other skin changes. Nontender to palpation. RESPIRATORY: Breath sounds equal bilaterally, no wheezes rales or rhonchi. ABDOMEN: Soft, nontender. Normoactive bowel sounds all 4 quadrants. No guarding or rebound, rigidity, no mass : No CVA tenderness EXTREMITIES: Normal range of motion, no clubbing or edema. Neurovascularly intact NEUROLOGICAL: Cranial nerves II through XII grossly intact. Moving all extremities. Normal gait. SKIN: Warm, dry, no petechiae, no rashes or lesions. Initial Vital Signs Initial Vital Signs: Vital Signs Pulse Rate 56 L 02/14/24 07:32 Respiratory Rate 20 02/14/24 07:32 Pulse Oximetry 97 02/14/24 07:32 Course Orders Ordered: ED Orders 02/14/24 07:35 XR chest 1V Stat EKG-12 Lead Stat 02/14/24 08:23 Complete Blood Count AUTO DIFF Stat Comprehensive Metabolic Panel Stat Lipase Stat NT-proBNP (BNP-Adult 18+) Stat Troponin & CK Cardiac Panel Stat 02/14/24 10:24 Trop I [Troponin I] Stat Vital Signs Vital signs: Vital Signs - 8 hr 02/14/24 07:32 02/14/24 07:33 02/14/24 08:00 Temperature 98.6 F Pulse Rate 56 L 60 50 L Respiratory Rate 20 20 Blood Pressure 195/88 H Pulse Oximetry 97 100 93 Oxygen Delivery Method Room Air 02/14/24 08:01 02/14/24 08:01 02/14/24 08:30 Temperature Pulse Rate 50 L Respiratory Rate Blood Pressure 152/67 H 159/77 H Pulse Oximetry 93 Oxygen Delivery Method 02/14/24 08:30 02/14/24 09:00 02/14/24 09:01 Temperature Pulse Rate 52 L 56 L 61 Respiratory Rate 13 Blood Pressure Pulse Oximetry 93 95 93 Oxygen Delivery Method 02/14/24 09:01 02/14/24 09:30 02/14/24 09:31 Temperature Pulse Rate 61 62 Respiratory Rate Blood Pressure 156/76 H Pulse Oximetry 96 95 Oxygen Delivery Method 02/14/24 09:31 02/14/24 10:00 02/14/24 10:00 Temperature Pulse Rate 49 L Respiratory Rate Blood Pressure 150/114 H 117/59 L Pulse Oximetry 92 Oxygen Delivery Method 02/14/24 10:30 02/14/24 10:30 02/14/24 11:00 Temperature Pulse Rate 56 L 55 L Respiratory Rate 16 16 Blood Pressure 125/59 L Pulse Oximetry 95 94 Oxygen Delivery Method 02/14/24 11:00 02/14/24 12:19 Temperature Pulse Rate 81 Respiratory Rate 20 Blood Pressure 142/65 H 145/88 H Pulse Oximetry 99 Oxygen Delivery Method Room Air MDM - Chest Pain Lab Data 02/14/24 08:23 02/14/24 08:23 Labs: Lab Results 02/14/24 02/14/24 Range/Units 08:23 10:24 WBC 6.8 (4.5-11.0) X10^3/uL RBC 4.95 (4.5-5.9) X10^6/uL Hgb 14.9 (13.5-17.5) g/dL Hct 45.0 (41-53) % MCV 90.9 (80-100) fL MCH 30.1 (26-34) PG MCHC 33.1 (30-36) % RDW 14.1 (11.6-14.8) % Plt Count 137 L (150-400) X10^3/uL Neut % (Auto) 61.4 (50-75) % Lymph % (Auto) 25.4 (25-40) % [place] % (Auto) 10.3 (3-14) % Eos % (Auto) 1.8 L (2-4) % Baso % (Auto) 1.1 (0-2) % Neut # (Auto) 4200 (9924-5032) /uL Lymph # (Auto) 1700 (6705-2963) /uL [place] # (Auto) 700 (0-900) /uL Eos # (Auto) 100 (0-450) /uL Baso # (Auto) 100 (0-100) /uL Sodium 141 (137-145) mmol/L Potassium 4.6 (3.4-5.1) mmol/L Chloride 108 H (98-107) mmol/L Carbon Dioxide 30 (22-32) mmol/L BUN 21 H (9-20) mg/dL Creatinine 1.00 (0.66-1.25) mg/dL Estimated GFR > 60 (>60) mL/min BUN/Creatinine Ratio 21.0 (6-22) Glucose 100 (80-110) mg/dL Calcium 9.2 (8.4-10.2) mg/dL Total Bilirubin 1.2 (0.2-1.3) mg/dL AST 35 (17-59) IU/L ALT 26 (<50) IU/L Alkaline Phosphatase 95 (38-126) U/L Total Creatine Kinase 76 (55-170) U/L Troponin I < 0.012 < 0.012 (0.01-0.034) ng/mL NT-Pro-B Natriuret Pep 392 (<450) pg/mL Total Protein 6.6 (6.3-8.2) g/dL Albumin 3.8 (3.5-5.0) g/dL Globulin 2.8 (1.7-4.1) g/dL Albumin/Globulin Ratio 1.4 (1.0-2.8) Lipase 105 (23-300) U/L Imaging Data Chest x-ray: Radiologist's Impression: Close Chest X-Ray (Signed) Sandip Edmond - 02/14/24 Chest X-Ray (Signed) Balbina Ye - 08/29/20 Chest X-Ray (Signed) Lester Noble - 07/04/20 Telemetry Strips 07/04/20 Echocardiogram Ultrasound (Signed) Melo Zarco - 05/26/[address] [address] XRay Report Signed Patient: Teddy Don MR#: [id number] : 1935 Acct:[id number] Age/Sex: 88 / M Date of Service: 02/14/24 Loc: ED Accession Number: [id number] Procedure: XR chest 1V Ordering Provider: Karly Sandoval D.O. PROCEDURE: XR CHEST 1V INDICATIONS: chest pain TECHNIQUE: One view of the chest was acquired. COMPARISON: [facility], , XR CHEST 1V, 08/29/2020, 23:36. FINDINGS: Surgical changes and devices: None. Lungs and pleura: Lungs are clear. No pleural effusions or pneumothorax. Mediastinum: Mediastinal contours appear normal. Heart size is normal. Bones and chest wall: No suspicious bony lesions. Overlying soft tissues appear unremarkable. IMPRESSION: No acute cardiopulmonary pathology. Dictated by: Sandip Edmond M.D. on 02/14/2024 at 7:48 Approved by: Sandip Edmond M.D. on 02/14/2024 at 7:48 ECG Data Attestation: I personally reviewed and interpreted this ECG as follows: Prior ECG tracings: available for review Interpretation: EKG shows sinus bradycardia with first-degree AV block right bundle-branch, left anterior fascicular block rate of 50, IN 214 QRS of 132 QTC of 444. Patient has prior from 07/04/2020 which overall appears very similar. Patient was EKG from 08/29/2020 but does not appear similar. Repeat EKG shows sinus bradycardia with first-degree AV block rate of 50 IN 2-2 QRS of 132 QTC of 421, right bundle-branch block left anterior fascicular block. Appears fairly similar to prior no dynamic changes appreciated. MDM Narrative Medical decision making narrative: 88-year-old male complaint of chest pain resolved he attributed to anxiety. Appears to have little bit of cognitive deficit at baseline confirmed with psych note from August of 2018. Labs show normal CBC accept for chronic thrombocytopenia dating back to 2017. Chloride 108 BUN 21 electrolytes are otherwise appropriate creatinine is 1, LFTs are negative troponins less than 0.012 with a BNP of 392. Repeat troponin is less than 0.012 Sinus bradycardia right bundle-branch block, left anterior fascicular block. Patient has change from August 2020 EKG but appears very similar to June of 2020. No dynamic changes on repeat. Chest x-ray shows no acute change. Recheck 0932 Patient asymptomatic. Reviewed findings with the patient continues to be chest pain-free patient feels comfortable with turn home. Family came picked up patient here. Discharge Plan Departure Patient Disposition: Home Clinical Impression: Chest pain Instructions: DI for Chest Pain Activity Restrictions/Additional Instructions: Follow up for recheck with your physician. Continue your home medications as prescribed. Please return for recurrent chest pain, shortness of breath, fevers, lightheadedness or passing out, new swelling of your extremities or other new or concerning changes. Prescriptions: No Action allopurinol 300 mg tablet 300 mg PO DAILY aspirin 81 mg tablet,delayed release (DR/EC) 81 mg PO DAILY diltiazem HCl 120 mg capsule,extended release 24hr 120 mg PO DAILY sertraline 50 mg tablet 50 mg PO DAILY [OTC STOOL SOFTENER] 1 tab PRN Qty: 0 simvastatin 40 MG tablet 80 mg PO HS Qty: 0 POTASSIUM CHLORIDE (KLOR-CON M10) 10 meq PO BID Qty: 0 hydrochlorothiazide 25 MG tablet 25 mg PO QDAY Qty: 0 Stand Alone Forms: Patient Portal/API/Survey
[2024-02-14 08:33] LABS: Add Manual Diff / Slide Review NO; Basophils Absolute Auto 100 /uL (0-100); Basophils Percent Auto 1.1 % (0-2); Eosinophils Absolute Auto 100 /uL (0-450); Eosinophils Percent Auto 1.8 % (2-4); Hemoglobin 14.9 g/dL (13.5-17.5); Lymphocytes Absolute Auto 1700 /uL (1100-4500); Lymphocytes Percent Auto 25.4 % (25-40); Mean Corpuscular HGB Conc 33.1 % (30-36); Mean Corpuscular Hemoglobin 30.1 PG (26-34); Mean Corpuscular Volume 90.9 fL (80-100); Monocytes Absolute Auto 700 /uL (0-900); Monocytes Percent Auto 10.3 % (3-14); Neutrophils Absolute Auto 4200 /uL (1500-7000); Neutrophils Percent Auto 61.4 % (50-75); Platelet Count 137 X10^3/uL (150-400); Red Blood Cell Count 4.95 X10^6/uL (4.5-5.9); Red Cell Distribution Width 14.1 % (11.6-14.8); White Blood Cell Count 6.8 X10^3/uL (4.5-11.0)
[2024-02-14 08:42] LABS: Alanine Aminotransferase 26 IU/L (<50); Albumin 3.8 g/dL (3.5-5.0); Alkaline Phosphatase 95 U/L (38-126); Aspartate Aminotransferase 35 IU/L (17-59); Bilirubin Total 1.2 mg/dL (0.2-1.3); Blood Urea Nitrogen 21 mg/dL (9-20); Calcium 9.2 mg/dL (8.4-10.2); Carbon Dioxide 30 mmol/L (22-32); Chloride 108 mmol/L (98-107); Creatine Kinase 76 U/L (55-170); Estimated Glomerular Filt Rate > 60 mL/min (>60); Glucose 100 mg/dL (80-110); HEMOLYSIS < 15 (0-50); Potassium 4.6 mmol/L (3.4-5.1); Sodium 141 mmol/L (137-145); Total Protein 6.6 g/dL (6.3-8.2)
[2024-02-14 08:43] LABS: Albumin Globulin Ratio 1.4 (1.0-2.8); Globulin 2.8 g/dL (1.7-4.1); Lipase 105 U/L (23-300)
[2024-02-14 08:54] LABS: NT-proBNP (BNP-Adult 18+) 392 pg/mL (<450); Troponin I < 0.012 ng/mL (0.01-0.034)
--- NOTE | 2024-02-14 10:28 | EKG_ITS ---
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
[2024-02-14 10:55] LABS: Troponin I < 0.012 ng/mL (0.01-0.034)
--- NOTE | 2024-02-14 11:14 | PC.NURSE ---
1114 Called and left message with daughter for ride.
== END 2024-02-14 12:21 | disposition home or self-care (01) ==
PROVIDERS: Emergency Provider Emergency Medicine
DX: R07.9 Chest pain, unspecified (principal); R00.1 Bradycardia, unspecified; I44.0 Atrioventricular block, first degree; I45.2 Bifascicular block
CPT/HCPCS: 36415; 71045; 80053; 82550; 83690; 83880; 84484; 85025; 93005; 93010; 99283; 99284